=== PATIENT | male | born 1990 | race Caucasian/White ===

== ENCOUNTER 2021-08-09 21:50 | Emergency (ER) | payer OTHER ==
[~2021-08-09] VITALS: Ht 157.5 cm; Wt 62.0 kg
[2021-08-09] MEDS ORDERED: IBUP-2028 MT (22:58)
[2021-08-09] MEDS ORDERED: CYCL5TAB MT (22:58)
[2021-08-09 23:00] VITALS: BP 122/66
[2021-08-09] MEDS ORDERED: IBUPROFEN 400MG TABLET PO ONE (23:00)
[2021-08-09] MEDS ORDERED: ACETAMINOPHEN 325MG TABLET PO ONE (23:00)
== END 2021-08-09 23:00 | disposition home or self-care (01) ==
LOC: ER 21:50
DX: M54.50 Low back pain, unspecified (principal); M54.2 Cervicalgia; V49.49XA Driver injured in collision with other motor vehicles in traffic accident, initial encounter; Y93.89 Activity, other specified; Y92.89 Other specified places as the place of occurrence of the external cause; Y99.8 Other external cause status
CPT/HCPCS: 99283